=== PATIENT | female | born 1990 | race American Indian/Alaskan Native ===

== ENCOUNTER 2021-05-12 18:23 | Outpatient (CLI) | payer OTHER ==
[2021-05-12] MEDS ORDERED: LACTATED RINGERS 1,000 ML IV ONE ×2 (18:39→21:08)
[2021-05-12 18:46] VITALS: BP 108/65
[2021-05-12 19:10] LABS: Bacteria,Urine 1+ /HPF (Negative); Bilirubin,Urine NEG (Negative); Blood,Urine MOD (Negative); Color,Urine Yellow (Yellow); Mucus,Urine 3+ /HPF
[2021-05-12] MEDS ORDERED: cefTRIAXone/NS 2 GM/100 ML 2 GM/100 ML BAG IV ONE (20:00)
== END 2021-05-12 22:30 | disposition home or self-care (01) ==
LOC: TRG 18:23 → APU 18:26 → TRG 22:30
PROVIDERS: ATTEND Obstetrics & Gynecology
DX: O26.853 Spotting complicating pregnancy, third trimester (principal); O62.9 Abnormality of forces of labor, unspecified; Z3A.37 37 weeks gestation of pregnancy
CPT/HCPCS: 81001; 87086; 96361; 96365; J0696; J7120

== ENCOUNTER 2021-05-15 09:35 | Outpatient (CLI) | payer OTHER ==
[2021-05-15 12:21] VITALS: BP 98/59
[2021-05-15] MEDS ORDERED: LACTATED RINGERS 1,000 ML IV SCH (12:30)
[2021-05-15] MEDS ORDERED: TERBUTALINE 1 MG/1 ML INJ SUB-Q SCH (13:22)
== END 2021-05-15 14:01 | disposition home or self-care (01) ==
LOC: TRG 09:35 → APU 09:36 → TRG 14:01
PROVIDERS: ATTEND Obstetrics & Gynecology
DX: O62.9 Abnormality of forces of labor, unspecified (principal); O46.93 Antepartum hemorrhage, unspecified, third trimester; Z3A.38 38 weeks gestation of pregnancy
CPT/HCPCS: 96372; J3105